=== PATIENT | male | born 1995 | race Caucasian/White ===

== ENCOUNTER → 2019-10-14 | Outpatient (CLI) | payer BC ==
[~2019-10-14] MED LIST: AMOXICILLIN 8751 TAB PO; CARAFATE 1GM1 G PO; MOTRIN 600600 MG/TAB PO; MULTI VITAMINS1 TAB PO; NORCO 325 MG-51 TAB PO; PHENERGAN 25 TA25 MG PO; PRIL40 PO
== END ==
LOC: COL.RAD 14:23
DX: K52.9 Noninfective gastroenteritis and colitis, unspecified (principal)
CPT/HCPCS: Q9967